=== PATIENT | female | born 1990 | race African-American/Black ===

== ENCOUNTER 2021-01-01 08:39 | Emergency (ER) | payer OTHER ==
[~2021-01-01] VITALS: Ht 165.1 cm; Wt 82.6 kg
[2021-01-01 08:40] VITALS: BP 121/78
[2021-01-01] MEDS ORDERED: HYDR100C PO (08:45)
[2021-01-01] MEDS ORDERED: PSEU120T19 PO (09:09)
[2021-01-01] MEDS ORDERED: FLON1SPR NARES (09:09)
== END 2021-01-01 09:26 | disposition home or self-care (01) ==
LOC: M ED 08:39
DX: R09.81 Nasal congestion (principal)

== ENCOUNTER 2021-06-01 16:02 | Emergency (ER) | payer OTHER ==
[~2021-06-01] VITALS: Ht 165.1 cm; Wt 79.5 kg
[~2021-06-01 16:02] MED LIST: FLON1SPR NARES; HYDR100C PO; PSEU120T19 PO
[2021-06-01] MEDS ORDERED: KETO10TAB PO (18:35)
[2021-06-01] MEDS ORDERED: METH-1164 PO (18:36)
[2021-06-01 19:15] VITALS: BP 140/84
== END 2021-06-01 19:14 | disposition home or self-care (01) ==
LOC: M ED 16:02
DX: M76.32 Iliotibial band syndrome, left leg (principal)